=== PATIENT | female | born 1970 | race Caucasian/White ===

== ENCOUNTER 2017-10-10 08:01 | Emergency (ER) | payer BC ==
[~2017-10-10] VITALS: Ht 160 cm; Wt 135.4 kg
[~2017-10-10 08:01] MED LIST: ASTN NAE; FLNIN/ NAE; GLIM2TAB2 PO; LISI-461 PO; ONDA8TAB12 PO
[2017-10-10 08:09] VITALS: Ht 160 cm; Wt 135.4 kg
[2017-10-10] MEDS ORDERED: ONDANSETRON INJ 2 MG/ML 2 ML VIAL IV STA (09:09)
[2017-10-10] MEDS ORDERED: SODIUM CHLORIDE 0.9% 1000ML 1,000 ML IV STA (09:09)
[2017-10-10 09:41] LABS: BASO % 0.3 %; BASO ABS # 0.03 K/uL (0-0.2); EOS % 1.1 %; EOS ABS # 0.12 K/uL (0-0.5); HEMATOCRIT 40.8 % (37-47); HEMOGLOBIN 13.4 g/dL (12.0-16.0); IG# 0.06 K/uL (0.00-0.02); LYMPH % 19.6 %; LYMPH ABS # 2.12 K/uL (1.2-3.4); MEAN CELL VOLUME 84.1 fL (80-100); MEAN CORPUSCULAR HEMOGLOBIN 27.6 pg (25-34); MEAN CORPUSCULAR HGB CONC 32.8 g/dl (32-36); MEAN PLATELET VOLUME 9.1 fL (7.4-10.4); MONO % 7.5 %; MONO ABS # 0.81 K/uL (0.11-0.59); NEUT % 70.9 %; NEUT ABS # 7.67 K/uL (1.4-6.5); PLATELET COUNT 366 K/uL (130-400); RED CELL DISTRIBUTION WIDTH CV 15.7 % (11.5-14.5); RED CELL DISTRIBUTION WIDTH SD 47.7 fL (36.4-46.3); WHITE BLOOD COUNT 10.81 K/uL (4.8-10.8)
[2017-10-10 09:57] LABS: CALCIUM 8.7 mg/dl (8.5-10.1); CREATININE 0.84 mg/dl (0.60-1.20); POTASSIUM 4.4 mmol/L (3.5-5.1)
--- NOTE | 2017-10-10 10:07 | DIAGNOSTIC IMAGING REPORT ---
CHEST 2 VIEWS ROUTINE HISTORY: cough COMPARISON: Chest 12/30/2014. FINDINGS: The lungs are clear. Cardiac silhouette is normal in size. No pleural effusions. No pneumothorax. IMPRESSION: No acute process. Electronically signed by: Radhames Edwards M.D. 10/10/2017 10:06 AM Dictated Date/Time: 10/10/2017 10:05 AM
[2017-10-10] MEDS ORDERED: ONDA4TAB10 SL (11:00)
--- NOTE | 2017-10-10 11:02 | EMERGENCY ROOM VISIT NOTE ---
History First contact with patient: 08:30 Chief Complaint: DEHYDRATION Stated Complaint: DEHYDRATION Nursing Triage Summary: patient states she has been feeling ill since . was given antibiotics and an inhaler for possible bronchitis. patient states she continues to have cough, feeling tired and nausea and diarrhea since tuesday. History of Present Illness The patient is a 47 year old female who presents to the Emergency Room with complaints of cough and overall decreased energy and not feeling well for "a few weeks". The patient states she was not feeling well approximately 1-2 weeks ago, and contacted her PCP. She was diagnosed with bronchitis and started on antibiotics and an inhaler. The patient states she had a reaction to the Levaquin, and was then switched to Augmentin. The patient states despite the antibiotics, she continues to have a cough, and is feeling tired with nausea and diarrhea since Tuesday. The patient states she has been very fatigued and sleeping more than usual. If she attempts to eat or drink any food or fluids, she vomits. She states her blood sugar has been elevated since last night, 360 last night and 235 this morning. Normally, she is a very well- controlled type II diabetic. The patient was able to tolerate some crackers this morning, however continued to feel nauseated. She is uncertain if she had a fever, but does report night sweats and chest discomfort with wheezing last night. Her wheezing does improve with the albuterol inhaler. Over the past week, she has been experiencing diarrhea. She states there is no specific pain , however she does experience some left upper quadrant discomfort associated with diarrhea. She denies any objective fever, abdominal pain, dyspnea, chest pain, upper respiratory infection symptoms including sinus congestion, rhinorrhea, otalgia, sore throat, or other associated symptoms. Review of Systems A complete 10 point review of systems was reviewed with the patient with pertinent positives and negatives as per history of present illness. All else were negative. Past Medical/Surgical History Medical Problems: (1) Asthma (2) Diabetes (3) Hypertension (4) Kidney stones Surgical Problems: (1) History of cholecystectomy Family History Diabetes mellitus FHx: gallbladder disease FHx: kidney disease Heart disease Hypertension Seizures Social History Smoking Status: Never Smoker Alcohol Use: none Marital Status: Housing Status: lives with significant other Occupation Status: employed Current/Historical Medications Scheduled Glimepiride (Glimepiride), 2 MG PO DAILY Lisinopril (Zestril), 10 MG PO DAILY Ondasetron Odt (Zofran Odt), 4 MG SL Q6H Scheduled PRN Azelastine Hcl (Astelin Nasal [place]), 2 SPRAYS MARYBETH BID PRN for Allergy Symptoms Physical Exam Vital Signs Date Time Temp Pulse Resp B/P (MAP) Pulse Ox O2 Delivery O2 Flow Rate FiO2 10/10/17 11:13 36.9 81 20 142/90 96 10/10/17 10:59 36.9 88 20 159/92 97 Room Air 10/10/17 09:48 36.9 88 20 160/96 96 Room Air 10/10/17 08:09 36.9 89 20 142/99 98 Room Air Physical Exam VITALS: Vitals are noted on the nurse's note and reviewed by myself. Vital signs stable. GENERAL: This is a 47-year-old obese white female, in no acute distress, nondiaphoretic, well-developed well-nourished. SKIN: The skin was without rashes, erythema, edema, or bruising. There is no tenting of the skin. Capillary reflex less than 2 seconds. HEAD: Normocephalic atraumatic. EARS: External auditory canals clear, tympanic membranes pearly valencia without erythema or effusion bilaterally. EYES: Pupils equal round and reactive to light and accommodation. Conjunctivae without injection, sclerae without icterus. Extraocular movements intact. NOSE: Patent, turbinates without inflammation or discharge. No sinus tenderness. MOUTH: Mucous membranes moist. Tonsils are not enlarged. Pharynx without erythema or exudate. Uvula midline. Airway patent. Tongue does not deviate. NECK: Supple without nuchal rigidity. No lymphadenopathy. No thyromegaly. Cervical spine is nontender. No JVD. HEART: Regular rate and rhythm without murmurs gallops or rubs. LUNGS: Clear to auscultation bilaterally without wheezes, rales or rhonchi. No dullness to percussion. No retractions or accessory muscle use. ABDOMEN: Positive bowel sounds x 4. Normal tympanic percussion. Soft, nontender, without masses or organomegaly. Cruz sign negative. No guarding or rebound tenderness. MUSCULOSKELETAL: No muscle atrophy, erythema, or edema noted. Full range of motion without joint tenderness in all extremities. No tenderness to palpation. Normal gait. Strength 5/5 throughout. NEURO: Patient was alert and oriented to person place and time. Normal sensation to light and sharp touch. Deep tendon reflexes 2+ throughout. No focal neurological deficits. Medical Decision & Procedures ER Provider Diagnostic Interpretation: CBC without significant leukocytosis, anemia, thrombocytopenia. PRP did show elevated BSG of 291 and slightly decreased sodium of 133. Otherwise without significant abnormality. CHEST 2 VIEWS ROUTINE HISTORY: cough COMPARISON: Chest 12/30/2014. FINDINGS: The lungs are clear. Cardiac silhouette is normal in size. No pleural effusions. No pneumothorax. IMPRESSION: No acute process. Electronically signed by: Radhames Edwards M.D. 10/10/2017 10:06 AM Dictated Date/Time: 10/10/2017 10:05 AM Laboratory Results 10/10/17 09:29 Red Blood Count 4.85, Mean Corpuscular Volume 84.1, Mean Corpuscular Hemoglobin 27.6, Mean Corpuscular Hemoglobin Concent 32.8, Mean Platelet Volume 9.1, Neutrophils (%) (Auto) 70.9, Lymphocytes (%) (Auto) 19.6, Monocytes (%) (Auto) 7.5, Eosinophils (%) (Auto) 1.1, Basophils (%) (Auto) 0.3, Neutrophils # (Auto) 7.67, Lymphocytes # (Auto) 2.12, Monocytes # (Auto) 0.81, Eosinophils # (Auto) 0.12, Basophils # (Auto) 0.03 10/10/17 09:29 Test 10/10/17 09:29 White Blood Count 10.81 K/uL (4.8-10.8) Red Blood Count 4.85 M/uL (4.2-5.4) Hemoglobin 13.4 g/dL (12.0-16.0) Hematocrit 40.8 % (37-47) Mean Corpuscular Volume 84.1 fL (80-100) Mean Corpuscular Hemoglobin 27.6 pg (25-34) Mean Corpuscular Hemoglobin Concent 32.8 g/dl (32-36) Platelet Count 366 K/uL (130-400) Mean Platelet Volume 9.1 fL (7.4-10.4) Neutrophils (%) (Auto) 70.9 % Lymphocytes (%) (Auto) 19.6 % Monocytes (%) (Auto) 7.5 % Eosinophils (%) (Auto) 1.1 % Basophils (%) (Auto) 0.3 % Neutrophils # (Auto) 7.67 K/uL (1.4-6.5) Lymphocytes # (Auto) 2.12 K/uL (1.2-3.4) Monocytes # (Auto) 0.81 K/uL (0.11-0.59) Eosinophils # (Auto) 0.12 K/uL (0-0.5) Basophils # (Auto) 0.03 K/uL (0-0.2) RDW Standard Deviation 47.7 fL (36.4-46.3) RDW Coefficient of Variation 15.7 % (11.5-14.5) Immature Granulocyte % (Auto) 0.6 % Immature Granulocyte # (Auto) 0.06 K/uL (0.00-0.02) Anion Gap 7.0 mmol/L (3-11) Est Creatinine Clear Calc Drug Dose 114.3 ml/min Estimated GFR () 97.3 Estimated GFR (Non- 83.9 BUN/Creatinine Ratio 16.1 (10-20) Calcium Level 8.7 mg/dl (8.5-10.1) Medications Administered Medications (Trade) Dose Ordered Sig/Doris Route Start Time Stop Time Status Last Admin Dose Admin Sodium Chloride 1,000 ml @ 999 mls/hr Q1H1M STAT IV 10/10/17 09:09 10/10/17 10:09 DC 10/10/17 09:35 999 MLS/HR Ondansetron HCl (Zofran Inj) 4 mg NOW STAT IV 10/10/17 09:09 10/10/17 09:12 DC 10/10/17 09:35 4 MG ED Course The patient was seen and evaluated as well. IV access obtained and labs drawn. The patient was given 1 L normal saline solution through the IV and 4 mg Zofran. She did note improvement in her symptoms. Chest x-ray was performed with results as previously noted. No acute disease in the chest. The patient was feeling much better prior to discharge. She was able to tolerate by mouth fluids and crackers. Discharge instructions reviewed, the patient was discharged home in good condition. Medical Decision This is a 47-year-old female patient presents today complaining of bronchitis which was recently treated with antibiotics. The patient did begin experiencing diarrhea shortly after starting the antibiotics. She came in today because she has been experiencing increased lethargy and fatigue, and has been having more vomiting, nausea, and feeling dehydrated. The patient improved significantly with normal saline solution and Zofran. Chest x-ray was negative for pneumonia. I do suspect the patient has experiencing symptoms related to bronchitis with possible gastroenteritis component. She could be having a reaction to the medications which she was previously prescribed. The patient was given a prescription for Zofran to use at home and encouraged to keep a diet easy to digest and drink plenty of fluids. The patient is in agreement with the assessment and plan. Differential diagnosis includes bronchitis, pneumonia, upper respiratory infection, influenza, gastroenteritis, medication reaction, C. difficile, pancreatitis, cholecystitis, gastritis, diverticulitis, appendicitis, malignancy , and others Medication Reconcilliation Current Medication List: was personally reviewed by me Blood Pressure Screening Patient's blood pressure: Elevated blood pressure Blood pressure disposition: Elevated BP felt to be situational, Referred to PCP Impression Primary Impression: Acute bronchitis Additional Impressions: Nausea & vomiting Diarrhea Departure Information Dispostion Home / Self-Care Condition GOOD Prescriptions Ondasetron Odt (ZOFRAN ODT) 4 Mg Tab 4 MG SL Q6H for Nausea, #6 TAB Prov: Aileen Vásquez PA-C 10/10/17 Referrals Ashley Donald (PCP) Patient Instructions Bronchitis Chronic Dc, ED Gastroenteritis Viral, [facility] Additional Instructions You were seen and evaluated in the emergency department today for acute bronchitis. I do feel that based on your symptoms, and the duration of illness, this is likely viral in nature. As discussed, antibiotics will not treat viral illness. You are also complaining of nausea, vomiting, and diarrhea. This could be a separate illness, however, I suspect antibiotics as the cause of your symptoms. You have been provided with an albuterol inhaler to use for wheezing or difficulty breathing. Use this inhaler 1-2 puffs every 4-6 hours as needed. If you find that your symptoms are not improving with the use of the inhaler, or if you find that you need to use the inhaler longer than 1 week, return to the ED or follow-up with your PCP. You have been given benzonatate (Tessalon Pearles) to be used for coughing. These should be taken 1 capsule up to 3 times per day as needed for coughing. Do not take this medication more than prescribed. You may use this medication in addition to OTC cough medications. For your sore throat, you may use a 1:1 mixture of liquid Benadryl and liquid Maalox. Gargle and spit this mixture. It will help to soothe the throat and provide some relief. Drink warm tea with honey and lemon, as this will also help to soothe the throat. Gargle with salt water frequently. As discussed, you should take OTC Mucinex and/or Sudafed for your symptoms. Please do not exceed the recommended daily dosages. You may use Zofran as directed for any nausea/vomiting. Ibuprofen(Motrin, Advil) may be used for fever or pain. Use 600mg every six hours as needed. Take with food. Avoid using more than 2400mg in a 24 hour period. Do not use 2400mg per day for more than three consecutive days without physician direction. Prolonged inappropriate use can lead to stomach upset or ulcers. You may take Naproxen 1-2 tablets twice daily in place of ibuprofen. This medication will help with the swelling in your sinuses. (AND/OR) Acetaminophen(Tylenol) may be used for fever or pain. Use 1000mg every six hours as needed. Avoid using more than 3000mg in a 24 hour period. For congestion, you may use Flonase OTC. You may want to consider zinc, echinacea, and vitamin C to help boost your immunity. Please get plenty of rest and drink plenty of fluids. Please return or follow-up with your PCP in 1 week if you are not experiencing any improvement in your symptoms. Your BP was elevated in the ED. Follow-up this week for re-check of your blood pressure with your PCP. Return to the emergency department for coughing up blood, difficulty breathing, chest pain, abdominal pain, blood in the urine, stool, or emesis, worsening symptoms, or for other concerns. Work Instructions Return To Work: 2 days Problem Qualifiers Primary Impression: Acute bronchitis Bronchitis organism: unspecified organism Qualified Codes: J20.9 - Acute bronchitis, unspecified Additional Impressions: Nausea & vomiting Vomiting type: unspecified Vomiting Intractability: non-intractable Qualified Codes: R11.2 - Nausea with vomiting, unspecified Diarrhea Diarrhea type: unspecified type Qualified Codes: R19.7 - Diarrhea, unspecified
[2017-10-10 11:13] VITALS: BP 142/90; PULSE 81; TEMP 36.9; O2SAT 96
== END 2017-10-10 11:14 | disposition home or self-care (01) ==
LOC: C.EDB 08:02
DX: J20.9 Acute bronchitis, unspecified (principal); R11.2 Nausea with vomiting, unspecified; R19.7 Diarrhea, unspecified; E11.9 Type 2 diabetes mellitus without complications; I10 Essential (primary) hypertension; Z79.84 Long term (current) use of oral hypoglycemic drugs; Z90.49 Acquired absence of other specified parts of digestive tract; Z83.3 Family history of diabetes mellitus; Z83.79 Family history of other diseases of the digestive system; Z84.1 Family history of disorders of kidney and ureter; Z82.49 Family history of ischemic heart disease and other diseases of the circulatory system; Z82.0 Family history of epilepsy and other diseases of the nervous system